=== PATIENT | female | born 1970 | race Caucasian/White ===

== ENCOUNTER 2019-12-23 15:15 | Emergency (ER) | payer BC ==
--- NOTE | 2019-12-23 16:03 | EDM.PDOC ---
ED HPI GENERAL MEDICAL PROBLEM - General Chief Complaint: Chest Pain Stated Complaint: RIB PAIN/RT SIDE Time Seen by Provider: 12/23/19 15:20 Source of Information: Reports: Patient, Family, RN, RN Notes Reviewed History Limitations: Reports: No Limitations - History of Present Illness INITIAL COMMENTS - FREE TEXT/NARRATIVE: Rib injury on Tuesday. She was reaching for an object above her head and hit the counter where she is having rib pain. Pain is rated at a 5. She is not sure the single ibuprofen she is taking daily is helping. She wants reassurance nothing is broke or causing her more injury. She has no pain at rest. She has pain with cough, reaching, or increased activity. 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 Right Chest Pain Score (Numeric/FACES): 5 (with activity - 0 at rest) - Related Data Allergies Allergy/AdvReac Type Severity Reaction Status Date / Time No Known Allergies Allergy Verified 12/23/19 15:30 Home Meds: Home Meds NK [No Known Home Meds] 12/23/19 [History] Past Medical History - Past Health History Medical/Surgical History: Denies Medical/Surgical History Social & Family History - Tobacco Use Smoking Status *Q: Never Smoker ED ROS GENERAL - Review of Systems Review Of Systems: See Below Constitutional: Reports: No Symptoms HEENT: Reports: No Symptoms Respiratory: Reports: Other (difficulty deep breathing with rib pain) Cardiovascular: Reports: No Symptoms Endocrine: Reports: No Symptoms GI/Abdominal: Reports: No Symptoms : Reports: No Symptoms Musculoskeletal: Reports: Other (rib pain secondary to minor trauma hitting ribs on counter reaching something over head) Skin: Reports: No Symptoms. Denies: Erythema, Wound, Change in Color Neurological: Reports: No Symptoms Psychiatric: Reports: No Symptoms Hematologic/Lymphatic: Reports: No Symptoms Immunologic: Reports: No Symptoms Free Text/Narrative/Comment: Patient states she never gets sick and wants to ensure she didn't injure anything ED EXAM, GENERAL - Physical Exam Exam: See Below Exam Limited By: No Limitations General Appearance: Alert, WD/WN, No Apparent Distress Neck: Normal Inspection, Supple, Non-Tender, Full Range of Motion Respiratory/Chest: No Respiratory Distress, Lungs Clear, Normal Breath Sounds, No Accessory Muscle Use, Other (tender to touch lateral right side base of ribs). No: Respiratory Distress, Decreased Breath Sounds, Accessory Muscle Use Cardiovascular: Normal Peripheral Pulses, Regular Rate, Rhythm, No Edema GI/Abdominal: Normal Bowel Sounds, Soft, Non-Tender Back Exam: Normal Inspection, Full Range of Motion Extremities: Normal Inspection, Normal Range of Motion, Non-Tender, No Pedal Edema, Normal Capillary Refill Neurological: Alert, Oriented, CN II-XII Intact, Normal Cognition Psychiatric: Normal Affect, Normal Mood Skin Exam: Warm, Dry, Intact, Normal Color, No Rash Course - Vital Signs Last Recorded V/S: Last Vital Signs Temp 36.3 C 12/23/19 15:39 Pulse 66 12/23/19 15:39 Resp 16 12/23/19 15:39 BP 121/67 12/23/19 15:39 Pulse Ox 99 12/23/19 15:39 - Re-Assessments/Exams Free Text/Narrative Re-Assessment/Exam: 12/23/19 16:12 Education rib fx versus bruised ribs treatment. Pt is in no distress. She is able to breath without difficulty except for 'real deep' breaths. She only has pain with reaching or with extended repetitive activity. Pt elected not to have xray at this time after education. She will increase her use of Ibuprofen over the next couple of days. If no improvement or she begins to have shortness of breath, fever, cough she should return to ER or followup with primary care provider for further evaluation. Departure - Departure Time of Disposition: 16:13 Disposition: Home, Self-Care 01 Condition: Good Clinical Impression: Rib pain on right side - Discharge Information *PRESCRIPTION DRUG MONITORING PROGRAM REVIEWED*: Not Applicable *COPY OF PRESCRIPTION DRUG MONITORING REPORT IN PATIENT KARRI: Not Applicable Instructions: Nonspecific Chest Pain, Adult, [id number] Referrals: Shaye Arteaga MD [Primary Care Provider] - Forms: ED Department Discharge Additional Instructions: Pt may take 600-800 mg of Ibuprofen 3 times a day for up to 5 days. If needed longer than 5 days at this dose return to primary care provider to be re- evaluated. Allow pain to be guide. Ensure taking deep breaths often to prevent pneumonia. Likely bruised ribs, which takes weeks or more to heal. Pain may wax and wane, but over time will improve Sepsis Event Note (ED) - Evaluation Sepsis Screening Result: No Definite Risk - Focused Exam Vital Signs: Vital Signs Temp Pulse Resp BP Pulse Ox 12/23/19 15:39 36.3 C 66 16 121/67 99 12/23/19 15:28 36.3 C 66 16 121/67 99
== END 2019-12-23 16:13 | disposition home or self-care (01) ==
LOC: JP.ED 15:15
DX: R07.81 Pleurodynia (principal); W22.8XXA Striking against or struck by other objects, initial encounter
CPT/HCPCS: 99283

== ENCOUNTER 2020-10-31 17:36 | Emergency (ER) | payer BC ==
[2020-10-31] MEDS ORDERED: Sodium Chloride 0.9% 10 ML Syringe FLUSH PRN (17:54)
--- NOTE | 2020-10-31 18:09 | EDM.PDOC ---
ED HPI GENERAL MEDICAL PROBLEM - General Chief Complaint: Cardiovascular Problem Stated Complaint: LIGHT HEADED, HEART RACING Time Seen by Provider: 10/31/20 17:53 Source of Information: Reports: Patient History Limitations: Reports: No Limitations - History of Present Illness INITIAL COMMENTS - FREE TEXT/NARRATIVE: Eva is a 50-year-old female presenting to the ED for evaluation of dizziness, confusion, lightheadedness, palpitations with tachycardia, and left arm intermittent paresthesia. The patient's symptoms started about 2 weeks ago and have been intermittent but worsening today. She says she has a difficult time with concentration and feels dizzy most of the time. She feels quite fatigued. She has had a diminished appetite. She admits to really not hydratin g as much as she probably ought to. She denies any trauma. 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 She states the left arm paresthesias resolves with movement of the arm or hand. It occurs intermittently throughout the day. In addition, the patient is a vegan and is on a very restrictive diet. denies Pain Score (Numeric/FACES): 0 - Related Data Allergies Allergy/AdvReac Type Severity Reaction Status Date / Time No Known Allergies Allergy Verified 10/31/20 18:14 Home Meds: Home Meds NK [No Known Home Meds] 12/23/19 [History] Past Medical History - Past Health History Medical/Surgical History: Denies Medical/Surgical History ED ROS GENERAL - Review of Systems Review Of Systems: See Below Constitutional: Reports: Malaise, Fatigue, Decreased Appetite HEENT: Reports: No Symptoms Respiratory: Reports: No Symptoms Cardiovascular: Reports: Lightheadedness, Palpitations Endocrine: Reports: Fatigue GI/Abdominal: Reports: No Symptoms : Reports: No Symptoms Musculoskeletal: Reports: No Symptoms Skin: Reports: No Symptoms Neurological: Reports: Confusion, Dizziness, Paresthesia (Intermittent left upper extremity paresthesias), Weakness (Dentalized) Psychiatric: Reports: Anxiety, Confusion Hematologic/Lymphatic: Reports: No Symptoms Immunologic: Reports: No Symptoms ED EXAM, GENERAL - Physical Exam Exam: See Below Exam Limited By: No Limitations General Appearance: Alert, Anxious, Mild Distress Eye Exam: Bilateral Eye: EOMI, PERRL Throat/Mouth: Normal Inspection, Normal Oropharynx, Normal Voice, No Airway Compromise Head: Atraumatic, Normocephalic Neck: Normal Inspection, Supple, Full Range of Motion Respiratory/Chest: No Respiratory Distress, Lungs Clear, Normal Breath Sounds Cardiovascular: Normal Peripheral Pulses, Regular Rate, Rhythm, No Murmur GI/Abdominal: Normal Bowel Sounds, Soft, Non-Tender Back Exam: Normal Inspection, Full Range of Motion Extremities: Normal Inspection, Normal Range of Motion, Normal Capillary Refill Neurological: Alert, Oriented, CN II-XII Intact, Normal Cognition, No Motor/Sensory Deficits Psychiatric: Normal Affect, Normal Mood, Anxious Skin Exam: Warm, Dry, Intact, Normal Color Lymphatic: No Adenopathy #1 Interpretation EKG Date: 10/31/20 Time: 18:05 Rhythm: NSR Rate (Beats/Min): 72 [place]: Normal P-Wave: Present QRS: Normal ST-T: Normal QT: Normal Comparison: NA - No Prior EKG Course - Vital Signs Last Recorded V/S: Last Vital Signs Temp 36.8 C 10/31/20 18:13 Pulse 75 10/31/20 18:54 Resp 15 10/31/20 18:54 BP 116/68 10/31/20 18:54 Pulse Ox 98 10/31/20 18:54 - Orders/Labs/Meds Orders: Active Orders 24 hr Category Date Time Status EKG Documentation Completion [RC] ASDIRECTED Care 10/31/20 17:54 Active Lactated Ringers [Ringers, Lactated] 1,000 ml Med 10/31/20 18:15 Active IV ASDIRECTED Sodium Chloride 0.9% [Saline Flush] Med 10/31/20 17:54 Active 10 ml FLUSH ASDIRECTED PRN Saline Lock Insert [OM.PC] Routine Oth 10/31/20 17:54 Ordered EKG 12 Lead [EK] Routine Ther 10/31/20 17:53 Ordered Medication Orders Lactated Ringer's (Ringers, Lactated) 1,000 mls @ 999 mls/hr IV ASDIRECTED IVONE Last Admin: 10/31/20 18:22 Dose: 999 mls/hr Documented by: KOTA Sodium Chloride (Sodium Chloride 0.9% 10 Ml Syringe) 10 ml FLUSH ASDIRECTED PRN PRN Reason: Keep Vein Open Last Admin: 10/31/20 18:23 Dose: 10 ml Documented by: KOTA Labs: Laboratory Tests 10/31/20 10/31/20 10/31/20 Range/Units 18:03 18:08 18:08 WBC 3.1 L (4.5-11.0) K/uL RBC 4.23 (3.30-5.50) M/uL Hgb 12.1 (12.0-15.0) g/dL Hct 37.5 (36.0-48.0) % MCV 89 (80-98) fL MCH 29 (27-31) pg MCHC 32 (32-36) % Plt Count 266 (150-400) K/uL Neut % (Auto) 53.5 (36-66) % Lymph % (Auto) 24.7 (24-44) % Moca % (Auto) 18.6 H (2-6) % Eos % (Auto) 2.2 (2-4) % Baso % (Auto) 1.0 (0-1) % D-Dimer, Quantitative 336.52 (0.0-500.0) ng/mL Sodium (140-148) mmol/L Potassium (3.6-5.2) mmol/L Chloride (100-108) mmol/L Carbon Dioxide (21-32) mmol/L Anion Gap (5.0-14.0) mmol/L BUN (7-18) mg/dL Creatinine (0.6-1.0) mg/dL Est Cr Clr Drug Dosing mL/min Estimated GFR (MDRD) (>60) Glucose (74-106) mg/dL Calcium (8.5-10.1) mg/dL Magnesium 1.9 (1.8-2.4) mg/dL Total Bilirubin (0.2-1.0) mg/dL AST (15-37) U/L ALT (12-78) U/L Alkaline Phosphatase (46-116) U/L Troponin I (0.000-0.056) ng/mL Total Protein (6.4-8.2) g/dL Albumin (3.4-5.0) g/dL Globulin (2.3-3.5) g/dL Albumin/Globulin Ratio (1.2-2.2) TSH, Ultra Sensitive (0.358-3.740) uIU/mL 10/31/20 Range/Units 18:08 WBC (4.5-11.0) K/uL RBC (3.30-5.50) M/uL Hgb (12.0-15.0) g/dL Hct (36.0-48.0) % MCV (80-98) fL MCH (27-31) pg MCHC (32-36) % Plt Count (150-400) K/uL Neut % (Auto) (36-66) % Lymph % (Auto) (24-44) % Moca % (Auto) (2-6) % Eos % (Auto) (2-4) % Baso % (Auto) (0-1) % D-Dimer, Quantitative (0.0-500.0) ng/mL Sodium 141 (140-148) mmol/L Potassium 4.0 (3.6-5.2) mmol/L Chloride 104 (100-108) mmol/L Carbon Dioxide 29 (21-32) mmol/L Anion Gap 8.2 (5.0-14.0) mmol/L BUN 16 (7-18) mg/dL Creatinine 0.7 (0.6-1.0) mg/dL Est Cr Clr Drug Dosing 89.55 mL/min Estimated GFR (MDRD) > 60 (>60) Glucose 95 (74-106) mg/dL Calcium 8.5 (8.5-10.1) mg/dL Magnesium (1.8-2.4) mg/dL Total Bilirubin 0.5 (0.2-1.0) mg/dL AST 23 (15-37) U/L ALT 33 (12-78) U/L Alkaline Phosphatase 89 (46-116) U/L Troponin I < 0.017 (0.000-0.056) ng/mL Total Protein 6.4 (6.4-8.2) g/dL Albumin 3.7 (3.4-5.0) g/dL Globulin 2.7 (2.3-3.5) g/dL Albumin/Globulin Ratio 1.4 (1.2-2.2) TSH, Ultra Sensitive 1.463 (0.358-3.740) uIU/mL Meds: Medications Generic Name Dose Route Start Last Admin Trade Name Freq PRN Reason Stop Dose Admin Lactated Ringer's 1,000 mls @ 999 mls/hr 10/31/20 18:15 10/31/20 18:22 Ringers, Lactated IV 999 mls/hr ASDIRECTED IVONE Administration Sodium Chloride 10 ml 10/31/20 17:54 10/31/20 18:23 Sodium Chloride 0.9% 10 Ml Syringe FLUSH 10 ml ASDIRECTED PRN Administration Keep Vein Open - Re-Assessments/Exams Free Text/Narrative Re-Assessment/Exam: 10/31/20 19:03 patient presented to the ER with what sounds like heat exhaustion. She has not been hydrating well despite the high temperatures and working in a greenhouse. In addition, she is vegan and has not been eating very well over the last several weeks because of decreased appetite. We will check labs including a CBC, comprehensive metabolic panel, TSH, magnesium, D-dimer, and troponin I. An EKG was obtained showing normal sinus rhythm with a rate of 72 bpm. There were no abnormalities noted. Her labs show a CBC with a leukocyte count of 3.1, hemoglobin of 12.1 with hematocrit of 37.5 and platelet count of 266,000. Her comprehensive metabolic panel is unremarkable. Her D- dimer is normal at 336. Her magnesium is normal at 1.9. Her troponin I is normal at less than 0.017. Her TSH is normal at 1.463. The patient was given a liter of normal saline 0.9%. In addition to the symptoms of confusion and dizziness, the patient is also been experiencing intermittent paresthesias involving the left upper extremity. This is likely due to nerve impingement in the neck. The patient is feeling better after receiving the liter of normal saline. This would reaffirm that she likely has some mild dehydration and heat exhaustion. We talked about the importance of proper hydration especially during the high heat high humidity time of the year. I did encourage her to take in at least 100 ounces of fluids a day which should compensate for the insensible fluid loss. I did encourage her to possibly get massage of the neck to see if this helps with the paresthesias. She should follow-up with her primary care provider for further work-up of this. Departure - Departure Time of Disposition: 19:31 Disposition: Home, Self-Care 01 Clinical Impression: Paresthesia of left upper extremity Heat exhaustion due to water depletion Qualifiers: Encounter type: initial encounter Qualified Code(s): T67.3XXA - Heat exhaustion, anhydrotic, initial encounter Instructions: Paresthesia, Heat Exhaustion, Preventing Heat Exhaustion, Adult Referrals: Shaye Arteaga MD [Primary Care Provider] - Forms: ED Department Discharge Care Plan Goals: For the heat exhaustion I recommend taking in the least 100 ounces of fluid a day. You should be urinating at least 4-5 times a day to ensure that you are maintaining adequate hydration. I recommend some of that fluid containing electrolytes like Powerade, Pedialyte, or Gatorade. For the paresthesia (numbness and tingling in the left upper extremity) I recommend getting a massage of the neck to see if this helps with the symptoms. The next step for work-up would be doing a MRI of your neck which is beyond the scope of what I would order in the ED. Certainly from a neurologic standpoint, I am not concerned about stroke based on your reported history. Sepsis Event Note (ED) - Focused Exam Vital Signs: Vital Signs Temp Pulse Resp BP Pulse Ox 10/31/20 18:54 75 15 116/68 98 10/31/20 18:13 36.8 C 77 17 125/75 99 10/31/20 17:52 36.8 C 77 17 125/75 99 - Problem List & Annotations (1) Heat exhaustion due to water depletion SNOMED Code(s): 228564888 Code(s): T67.3XXA - HEAT EXHAUSTION, ANHYDROTIC, INITIAL ENCOUNTER Status: Acute Priority: High Current Visit: Yes Qualifiers: Encounter type: initial encounter Qualified Code(s): T67.3XXA - Heat exhaustion, anhydrotic, initial encounter (2) Paresthesia of left upper extremity SNOMED Code(s): 61409531154306265 Code(s): R20.2 - PARESTHESIA OF SKIN Status: Acute Priority: Low Current Visit: Yes - Problem List Review Problem List Initiated/Reviewed/Updated: Yes - My Orders Last 24 Hours: My Active Orders 10/31/20 17:53 EKG 12 Lead [EK] Routine 10/31/20 17:54 EKG Documentation Completion [RC] ASDIRECTED Sodium Chloride 0.9% [Saline Flush] 10 ml FLUSH ASDIRECTED PRN Saline Lock Insert [OM.PC] Routine 10/31/20 18:15 Lactated Ringers [Ringers, Lactated] 1,000 ml IV ASDIRECTED - Assessment/Plan Last 24 Hours: My Active Orders 10/31/20 17:53 EKG 12 Lead [EK] Routine 10/31/20 17:54 EKG Documentation Completion [RC] ASDIRECTED Sodium Chloride 0.9% [Saline Flush] 10 ml FLUSH ASDIRECTED PRN Saline Lock Insert [OM.PC] Routine 10/31/20 18:15 Lactated Ringers [Ringers, Lactated] 1,000 ml IV ASDIRECTED
[2020-10-31] MEDS ORDERED: Lactated Ringers 1,000 ML IV SCH (18:15)
== END 2020-10-31 19:43 | disposition home or self-care (01) ==
LOC: JP.ED 17:36
DX: T67.3XXA Heat exhaustion, anhydrotic, initial encounter (principal); R20.2 Paresthesia of skin
CPT/HCPCS: 36415; 80053; 83735; 84443; 84484; 85025; 85379; 93005; 99283; 99285; J7120

== ENCOUNTER 2021-08-25 07:41 | Day surgery (SDC) | payer BC, MEDICAID ==
[2021-08-25] MEDS ORDERED: Propofol 200 MG/20 ML SDV ONE (08:36)
[2021-08-25] MEDS ORDERED: Midazolam 1 MG/ML 2 ML SDV ONE (08:36)
[2021-08-25] MEDS ORDERED: fentaNYL 100 MCG/2 ML SDV ONE (08:36)
[2021-08-25] MEDS ORDERED: Dextrose 5%-Lactated Ringers 1,000 ML IV SCH ×2 (08:37→09:30)
== END 2021-08-25 10:45 | disposition home or self-care (01) ==
LOC: JP.SDS 07:41
PROVIDERS: ATTEND Family Medicine
DX: Z12.11 Encounter for screening for malignant neoplasm of colon (principal); Z90.89 Acquired absence of other organs
CPT/HCPCS: J2250; J2704; J3010; J7121